=== PATIENT | female | born 1995 | race Caucasian/White ===

== ENCOUNTER 2018-07-14 16:21 | Inpatient (IN) | payer OTHER ==
[~2018-07-14] VITALS: Ht 154.9 cm; Wt 65.8 kg
[2018-07-14] MEDS ORDERED: METOCLOPRAMIDE HCL 5 MG/ML 2 ML VIAL IVP PRN (17:45)
[2018-07-14] MEDS ORDERED: RINGERS SOLUTION,LACTATED 1,000 ML IV PRN (17:45)
[2018-07-14] MEDS ORDERED: CITRIC ACID/SODIUM CITRATE 30 ML SOLUTION UDCUP PO PRN (17:45)
[2018-07-14] MEDS ORDERED: OXYTOCIN 30 UNITS/LACT RINGERS 500 ML IV ONE (17:45)
[2018-07-14] MEDS ORDERED: LIDOCAINE/PF 1% 30 ML VIAL INJ PRN (17:45)
[2018-07-14] MEDS ORDERED: METHYLERGONOVINE MALEATE 0.2 MG/ML VIAL IM PRN (17:45)
[2018-07-14] MEDS ORDERED: PREN1TAB80 PO (18:05)
[2018-07-14] MEDS ORDERED: IRON-24 PO (18:08)
[2018-07-14 18:11] VITALS: BP 119/78
[2018-07-14 18:17] LABS: BASOPHILS % (AUTO) 0.3 % (0.0-2.0); EOSINOPHILS % (AUTO) 0.6 % (1.0-6.0); HEMATOCRIT 31.9 % (36-46); HEMOGLOBIN 10.7 g/dL (12.0-16.0); LYMPHOCYTES # (AUTO) 1.7 K/uL (1.0-4.8); LYMPHOCYTES % (AUTO) 17.2 % (22.0-44.0); MEAN CORPUSCULAR HEMOGLOBIN 27.9 pg (26.0-34.0); MEAN CORPUSCULAR HGB CONC 33.5 G/dL (31.0-37.0); MEAN CORPUSCULAR VOLUME 84 fL (80-100); MONOCYTES # (AUTO) 0.6 K/uL (0.1-1.0); MONOCYTES % (AUTO) 6.2 % (2.0-9.0); NEUTROPHILS # (AUTO) 7.4 K/uL (1.8-7.7); NEUTROPHILS % (AUTO) 75.7 % (40.0-70.0); PLATELET COUNT (AUTO)-OB 172 K/uL (150-450); RED BLOOD CELL COUNT(AUTO) 3.82 MIL/uL (4.00-5.20); RED CELL DISTRIBUTION WIDTH 15.3 % (11.5-14.5)
[2018-07-14] MEDS: RINGERS SOLUTION,LACTATED 1,000 ML IV SCH ×3 (18:47→22:13)
[2018-07-14] MEDS ORDERED: RINGERS SOLUTION,LACTATED 1,000 ML IV SCH (18:57)
[2018-07-14] MEDS: MISOPROSTOL 25 MCG TABLET VG SCH ×2 (19:04→23:00)
[2018-07-14] MEDS ORDERED: TERBUTALINE SULFATE 1 MG/ML VIAL ONE (19:34)
[2018-07-14] MEDS ORDERED: TERBUTALINE SULFATE 1 MG/ML VIAL SQ PRN (19:45)
[2018-07-14] MEDS: OXYGEN THERAPY IH SCH (20:00)
[2018-07-14] MEDS ORDERED: OXYTOCIN 30 UNITS/LACT RINGERS 500 ML IV PRN (23:33)
[2018-07-15] MEDS: MISOPROSTOL 25 MCG TABLET VG SCH ×4 (03:00→15:00)
[2018-07-15] MEDS: FentaNYL CITRATE-PF 100 MCG/2 ML VIAL IVP PRN ×2 (05:40→05:46)
[2018-07-15] MEDS: RINGERS SOLUTION,LACTATED 1,000 ML IV SCH ×2 (05:53→17:21)
[2018-07-15] MEDS: OXYGEN THERAPY IH SCH ×2 (08:00→20:00)
[2018-07-15] MEDS ORDERED: BUPIVACAINE HCL/PF 0.5% 25 ML, FentaNYL CITRATE PF 200 MCG in BUPIVACAINE HCL 0.125%/NS... ED PRN (09:44)
[2018-07-15] MEDS ORDERED: ONDANSETRON HCL 4 MG/2 ML VIAL IVP PRN ×2 (09:45→11:00)
[2018-07-15] MEDS ORDERED: DiphenhydrAMINE HCL 50 MG/ML VIAL IVP PRN ×2 (09:45→11:00)
[2018-07-15] MEDS ORDERED: ROPIVACAINE HCL/PF 0.2% 100 ML ED PRN ×2 (09:45→11:00)
[2018-07-15] MEDS ORDERED: ROPIVACAINE HCL/PF 0.2% 100 ML ED ONE (09:54)
[2018-07-15] MEDS ORDERED: LANOLIN 7 GM OINTMENT TP PRN (19:45)
[2018-07-15] MEDS ORDERED: METHYLERGONOVINE MALEATE 0.2 MG TABLET PO PRN (19:45)
[2018-07-15] MEDS ORDERED: MAGNESIUM HYDROXIDE SUSPENSION 30 ML UDCUP PO PRN (19:45)
[2018-07-15] MEDS ORDERED: SENNA/DOCUSATE SODIUM 187-50 MG TABLET PO PRN (19:45)
[2018-07-15] MEDS ORDERED: OxyCODONE HCL/ACETAMINOPHEN 5-325 MG TABLET PO PRN ×2 (19:45)
[2018-07-15] MEDS: GLYCERIN/WITCH HAZEL LEAF 40 PADS JAR TP PRN (21:12)
[2018-07-15] MEDS: BENZOCAINE 20%/MENTHOL 56 GM SPRAY CANISTER TP PRN (21:13)
[2018-07-16] MEDS: IBUPROFEN 800 MG TABLET PO PRN ×2 (03:31→20:04)
[2018-07-16 06:14] LABS: BASOPHILS % (AUTO) 0.3 % (0.0-2.0); EOSINOPHILS % (AUTO) 0.2 % (1.0-6.0); HEMATOCRIT 28.3 % (36-46); HEMOGLOBIN 9.4 g/dL (12.0-16.0); LYMPHOCYTES # (AUTO) 2.1 K/uL (1.0-4.8); LYMPHOCYTES % (AUTO) 13.7 % (22.0-44.0); MEAN CORPUSCULAR HEMOGLOBIN 27.2 pg (26.0-34.0); MEAN CORPUSCULAR HGB CONC 33.1 G/dL (31.0-37.0); MEAN CORPUSCULAR VOLUME 82 fL (80-100); MONOCYTES # (AUTO) 1.1 K/uL (0.1-1.0); MONOCYTES % (AUTO) 7.6 % (2.0-9.0); NEUTROPHILS # (AUTO) 11.8 K/uL (1.8-7.7); NEUTROPHILS % (AUTO) 78.2 % (40.0-70.0); PLATELET COUNT (AUTO)-OB 152 K/uL (150-450); RED BLOOD CELL COUNT(AUTO) 3.44 MIL/uL (4.00-5.20); RED CELL DISTRIBUTION WIDTH 15.3 % (11.5-14.5)
[2018-07-16] MEDS ORDERED: IBUP-2071 PO (15:29)
[2018-07-16] MEDS ORDERED: DSS100 PO (15:31)
[2018-07-16] MEDS ORDERED: FERR-89 PO (15:33)
[2018-07-16] MEDS: GLYCERIN/WITCH HAZEL LEAF 40 PADS JAR TP PRN (18:18)
[2018-07-16] MEDS: BENZOCAINE 20%/MENTHOL 56 GM SPRAY CANISTER TP PRN (18:18)
== END 2018-07-16 20:25 | disposition home or self-care (01) | DRG 775 ==
LOC: OBSVTOIN 16:21 → 4S 16:21
PROVIDERS: ADMIT Specialist; ATTEND Specialist
PROC: 10D07Z6 Extraction of Products of Conception, Vacuum, Via Natural or Artificial Opening (ICD-10-PCS; principal; 2018-07-15)
PROC: 0KQM0ZZ Repair Perineum Muscle, Open Approach (ICD-10-PCS; 2018-07-15)
PROC: 0W8NXZZ Division of Female Perineum, External Approach (ICD-10-PCS; 2018-07-15)
PROC: 10907ZC Drainage of Amniotic Fluid, Therapeutic from Products of Conception, Via Natural or Artificial Opening (ICD-10-PCS; 2018-07-15)
PROC: 3E0R3BZ Introduction of Anesthetic Agent into Spinal Canal, Percutaneous Approach (ICD-10-PCS; 2018-07-15)
PROC: 00HU33Z Insertion of Infusion Device into Spinal Canal, Percutaneous Approach (ICD-10-PCS; 2018-07-15)
DX: O66.5 Attempted application of vacuum extractor and forceps (principal); Z3A.39 39 weeks gestation of pregnancy; O70.1 Second degree perineal laceration during delivery; Z37.0 Single live birth
CPT/HCPCS: 86850; 86900; 86901; J2590; J2795; J3010; J3105; J7120